=== PATIENT | male | born 1955 | race African-American/Black ===

== ENCOUNTER 2017-09-06 08:07 | Outpatient (CLI) | payer OTHER ==
[2017-09-06] MEDS ORDERED: Magnevist 469MG/ML 20 ML VIAL ONE (09:00)
--- NOTE | 2017-09-06 11:48 | MRI ---
MRI ABDOMEN WITHOUT AND WITH CONTRAST: Date: 09/06/17 COMPARISON: Gallbladder ultrasound dated 07/28/14. HISTORY: Hepatitis C. TECHNIQUE: Multiplanar, multisequence MR images were obtained of the abdomen without and with IV contrast. FINDINGS: The liver has a smooth contour without evidence of cirrhosis. No focal liver lesions are seen. There is a well circumscribed, nonenhancing 8.0 mm cyst in the left kidney. The gallbladder, right ki dney, adrenal glands, spleen, and pancreas are unremarkable. No abdominal adenopathy is seen. IMPRESSION: 1. No significant hepatic abnormality. 2. Left renal cyst. POS: [facility]
== END 2017-09-06 08:08 | disposition home or self-care (01) ==
LOC: SCSMRI 08:07
PROVIDERS: ATTEND Internal Medicine Gastroenterology
DX: K74.60 Unspecified cirrhosis of liver (principal); R93.2 Abnormal findings on diagnostic imaging of liver and biliary tract; D12.6 Benign neoplasm of colon, unspecified; K21.9 Gastro-esophageal reflux disease without esophagitis; N28.1 Cyst of kidney, acquired
CPT/HCPCS: 74183; 82565; A9579

== ENCOUNTER 2018-06-13 06:35 | Outpatient (CLI) | payer OTHER ==
--- NOTE | 2018-06-13 11:45 | NM ---
NM Cardiac Stress W EF WF History: [Chest pain, hypertension, dyslipidemia] Comparison: None. Findings: Stress and rest performed after the intravenous administration of 32.7 and 11 mCi technetiu m 99m sestamibi, intravenously. No evidence of scar or ischemia. Wall motion is normal. Ejection fraction is 75%. Impression: Normal nuclear medicine cardiac stress test and ejection fraction.
[2018-06-13] MEDS ORDERED: Regadenoson 0.4 MG/5 ML SYRINGE ONE (16:37)
== END 2018-06-13 06:36 | disposition home or self-care (01) ==
LOC: NM 06:35
PROVIDERS: ATTEND Family Medicine
DX: R07.9 Chest pain, unspecified (principal)
CPT/HCPCS: 78452; 93017; A9500; J2785